=== PATIENT | female | born 1995 | race Caucasian/White ===

== ENCOUNTER 2016-10-04 22:21 | Emergency (ER) | payer OTHER ==
[2016-10-04 22:26] VITALS: BP 123/89
--- NOTE | 2016-10-04 22:35 | EDPHY ---
H & P Stated Complaint: VOMITING/ABD PAIN HEADACHE SINCE THIS AFTERNOON HPI/ROS: HPI CHIEF COMPLAINT: Nausea, vomiting, headache HISTORY OF PRESENT ILLNESS: This patient very pleasant 21-year-old female she presents emergency room with nausea vomiting a global headache. She states this all started around 3:00 p.m.. She went out last night drinking alcohol she had 4 alcoholic beverages. She tells me that she did not feel hung over this morning. She has had a recent upper respiratory tract infection she has been recovering from. She says around 3330, she developed a frontal throbbing headache she does have a history of migraines however this feels little bit different than her migraines. It is not the worst headache of her life it is not sudden onset, she has no meningeal signs, she has no fever. No visual disturbance. She tells me that she tried to take p.o. intake including yogurt glasses of water however got nauseous after ingestion and had nonbilious nonbloody vomiting. No abdominal pain she does endorse nausea. No chest pain or shortness of breath. she tells me her headache is 2/10. Initially frontal now global. Past Medical History: Migraine headaches Past Surgical History: [place] tooth extraction Social History: [employer] student, denies daily use of drugs alcohol tobacco products does endorse drinking alcohol last night Family History: Noncontributory ROS REVIEW OF SYSTEMS: A comprehensive 10 point review of systems is otherwise negative aside from elements mentioned in the history of present illness. Exam Constitutional appears well nontoxic, triage nursing summary reviewed, vital signs reviewed, awake/alert. Eyes normal conjunctivae and sclera, EOMI, PERRLA. HENT normal inspection, atraumatic, moist mucus membranes, no epistaxis, neck supple/ no meningismus, no raccoon eyes. Respiratory clear to auscultation bilaterally, normal breath sounds, no respiratory distress, no wheezing. Cardiovascular rate normal, regular rhythm, no murmur, no edema, distal pulses normal. Gastrointestinal no tenderness on exam soft, non-tender, no rebound, no guarding, normal bowel sounds, no distension, no pulsatile mass. Genitourinary no CVA tenderness. Musculoskeletal no midline vertebral tenderness, full range of motion, no calf swelling, no tenderness of extremities, no meningismus, good pulses, neurovascularly intact. Skin pink, warm, & dry, no rash, skin atraumatic. Neurologic no meningeal signs, normal neurological exam, awake, alert and oriented x 3, AAOx3, moves all 4 extremities equally, motor intact, sensory intact, CN II-XII intact, normal cerebellar, normal vis on exam, and appears well nontoxicion, normal speech. Psychiatric normal mood/affect. Heme/Lymph/Immune no lymphadenopathy. Differential Diagnosis: Includes but is not limited to in a particular order dehydration, electrolyte disturbance, gastritis, migraine headache, no evidence of meningitis specifically no stiff neck, not worst headache of her life, no meningeal signs, appears well nontoxic. Medical Decision Making: This patient appears very well nontoxic afebrile, abdomen is soft vital signs are reviewed and are normal. Plan for this patient is ODT Zofran Tylenol for headache. after Zofran and Tylenol will re-evaluate her with a p. o. challenge see if she can tolerate p.o. liquids. Re-evaluation: 2355: re-evaluation at this time this patient is resting comfortably no acute distress. Feels better after ODT Zofran was able to p.o. challenge with out any vomiting. Tylenol was given for headache she tells me she feels much better and is ready for discharge. She does understand strict return precautions understands return emergency room if develops worsening headache, vomiting fever or does not feel well. At this time she appears well nontoxic no acute distress no medical complaints. Headache improved, no nausea, p.o. challenge well. Source: Patient - Personal History LMP (Females 10-55): Extended Cycle BCP/Inj Current Tetanus/Diphtheria Vaccine: Yes - Medical/Surgical History Hx Asthma: No Hx Chronic Respiratory Disease: No Hx Diabetes: No Hx Cardiac Disease: No Hx Renal Disease: No Hx Cirrhosis: No Hx Alcoholism: No Hx HIV/AIDS: No Hx Splenectomy or Spleen Trauma: No Other PMH: MIGRAINES - Social History Smoking Status: Never smoked Constitutional: Initial Vital Signs Temperature (C) 36.4 C 10/04/16 22:23 Heart Rate 90 10/04/16 22:23 Respiratory Rate 18 10/04/16 22:23 Blood Pressure 123/89 H 10/04/16 22:23 O2 Sat (%) 97 10/04/16 22:23 O2 Delivery Mode Room Air Allergies/Adverse Reactions: No Known Allergies Allergy (Unverified 10/04/16 22:23) Home Medications: Medication Instructions Recorded Depo-Provera 10/04/16 Medical Decision Making - Data Points Medications Given: Discontinued Medications Acetaminophen (Tylenol) 1,000 mg PO EDNOW ONE Stop: 10/04/16 22:44 Last Admin: 10/04/16 22:52 Dose: 1,000 mg Ondansetron HCl (Zofran Odt) 4 mg PO EDNOW ONE Stop: 10/04/16 22:44 Last Admin: 10/04/16 22:52 Dose: 4 mg Departure - Departure Disposition: Home, Routine, Self-Care Clinical Impression: Vomiting Qualifiers: Vomiting type: unspecified Vomiting Intractability: non-intractable Nausea presence: with nausea Qualified Code(s): R11.2 - Nausea with vomiting, unspecified Condition: Good Instructions: Acute Nausea and Vomiting (ED), Ondansetron (By mouth) Additional Instructions: 1. Stay well-hydrated 2. do not eat spicy fatty greasy foods. 3. I have given you a limited supply of nausea medicine. 4. Return emergency room if develops worsening abdominal pain, fever, vomiting worsening headache. Referrals: AMY SANTOS [Primary Care Provider] - As per Instructions
[2016-10-04] MEDS ORDERED: ONDANSETRON DISINTEGRATING 4 MG TAB PO ONE (22:43)
[2016-10-04] MEDS ORDERED: ACETAMINOPHEN 500 MG TAB PO ONE (22:43)
[2016-10-04 23:49] VITALS: PULSE 74; RESP 16; TEMP 98.6; O2SAT 96
[2016-10-04] MEDS ORDERED: ONDANSETRON 4MG PREPACK#2 BTL TAKEHOME ONE ×2 (23:57)
== END 2016-10-05 | disposition home or self-care (01) ==
DX: R11.2 Nausea with vomiting, unspecified (principal)